=== PATIENT | female | born 1970 | race Native Hawaiian/Other Pacific Islander ===

== ENCOUNTER 2017-05-21 13:27 | Emergency (ER) | payer OTHER ==
[~2017-05-21] VITALS: Ht 157.5 cm; Wt 85.3 kg
[2017-05-21 13:52] VITALS: BP 131/88; TEMP 98.4
== END 2017-05-21 14:16 | disposition home or self-care (01) ==
LOC: ED 13:27
DX: R10.9 Unspecified abdominal pain (principal); Z98.890 Other specified postprocedural states
CPT/HCPCS: 99281

== ENCOUNTER 2019-09-05 08:59 | Outpatient (CLI) | payer OTHER | END 2019-09-05 20:14 | disposition home or self-care (01) | LOC: NM 08:59 | DX: I25.10 Atherosclerotic heart disease of native coronary artery without angina pectoris (principal); R06.00 Dyspnea, unspecified; R06.02 Shortness of breath | CPT/HCPCS: 93306; A9500; J2785 ==